=== PATIENT | female | born 1970 | race Caucasian/White ===

== ENCOUNTER 2017-03-21 11:01 | Day surgery (SDC) | payer OTHER ==
[2017-03-21] VITALS (14 sets, daily range): BP systolic 92–120; BP diastolic 63–80; PULSE 72–90; RESP 13–27; Ht 157.5 cm; Wt 91.7 kg
[~2017-03-21] VITALS: Ht 157.5 cm; Wt 91.7 kg
[2017-03-21] MEDS ORDERED: SOD CHLORIDE 0.9% 1,000 ML IV SCH (12:30)
[2017-03-21] MEDS ORDERED: CEFAZOLIN 2 GM/50 ML (PMX) 50 ML IVPB ONE (12:30)
[2017-03-21] MEDS ORDERED: PROPOFOL 20 ML ONE (14:52)
[2017-03-21] MEDS ORDERED: ROCURONIUM 50 MG INJ ONE (14:52)
[2017-03-21] MEDS ORDERED: LIDOCAINE 2% (SDV) 5 ML INJ ONE (14:52)
[2017-03-21] MEDS ORDERED: SUCCINYLCHOLINE CHLORIDE 100 MG/5 ML SYG IV ONE (14:52)
[2017-03-21] MEDS ORDERED: NEOSTIGMINE 3 MG/3 ML SYRINGE ONE ×2 (14:52→15:20)
[2017-03-21] MEDS ORDERED: GLYCOPYRROLATE 1 MG INJ ONE (14:52)
[2017-03-21] MEDS ORDERED: CEFAZOLIN 1 GM INJ ONE (14:55)
[2017-03-21] MEDS ORDERED: ONDANSETRON 4 MG INJ ONE (14:55)
[2017-03-21] MEDS ORDERED: METOCLOPRAMIDE 10 MG INJ ONE (14:55)
[2017-03-21] MEDS ORDERED: BUPIVACAINE 0.25% (MPF) 30 ML INJ ONE (14:55)
[2017-03-21] MEDS ORDERED: hydrALAzine 20 MG INJ IV PRN (15:00)
[2017-03-21] MEDS ORDERED: OXYCODONE/ACETAMINOPHEN (5/325) TAB PO PRN ×2 (15:00)
[2017-03-21] MEDS ORDERED: FENTAnyl 50 MCG/ML VIAL IV PRN ×3 (15:00)
[2017-03-21] MEDS ORDERED: METOCLOPRAMIDE 10 MG INJ IV PRN (15:00)
[2017-03-21] MEDS ORDERED: DIPHENHYDRAMINE 50 MG INJ IV PRN (15:00)
[2017-03-21] MEDS ORDERED: EPHEDrine SULFATE 50 MG/5 ML SYG IV PRN (15:00)
[2017-03-21] MEDS ORDERED: MEPERIDINE 25 MG INJ IV PRN (15:00)
[2017-03-21] MEDS ORDERED: MIDAZOLAM 1 MG/ML 2 ML INJ IV PRN (15:00)
[2017-03-21] MEDS ORDERED: ONDANSETRON 4 MG INJ IV PRN (15:00)
[2017-03-21] MEDS ORDERED: HYDROmorphONE (0.2 MG/ML) 10ML SYG IV PRN ×3 (15:00)
[2017-03-21] MEDS ORDERED: LABETALOL HCL 20MG INJ IV PRN (15:00)
--- NOTE | 2017-03-21 15:49 | OPR ---
Date/Time of Note Date/Time of Note DATE: 03/21/17 TIME: 15:45 Operative Report Procedure Date: Mar 21, 2017 Preoperative Diagnosis symptomatic gallstones Postoperative Diagnosis same Operation/Procedure Performed 1. laparoscopic cholecystectomy 2. therapeutic injection in subcutaneous local anesthesia Surgeon see signature line Rn Transfer none Anesthesia Type: general Estimated Blood Loss: 0 - 10 ml's Transfusion none Specimen gallbladder Grafts/Implants none Complications none Pt Condition Post Procedure: stable Indications This is a 38-year-old female with chronic gallstones. She requests surgical excision of her gallbladder. Risks alternatives benefits and personnel were discussed the patient. Patient expressed understanding and consents to the operation. Procedure Description Patient taken to the OR and prepped and draped in usual sterile fashion. Surgical timeout was performed. IV antibiotics were given. Infraumbilical incision is made with a 15 blade. Dissection cautery was carried down to the fascia. The fascia was grasped with [place]'s and divided with curved Gavin scissors. 0 Vicryl U stitch was placed into the fascia. Blueness on trocar is introduced pneumoperitoneum established. Midepigastric 12 mm optical trocar was placed under direct visualization. Right upper quadrant upper flank 5 mm optical trocar was placed under direct visualization. Upon initial inspection there are some adhesions to the gallbladder which came down bluntly. The gallbladder was grasped and retracted in the lateral and our direction. Cautery was used laterally to allow mobilization. This allowed careful dissection the cystic duct. The cystic duct was thickened. The cystic duct was divided with 3 clips proximal and distally with 35 mm echelon vascular stapler. The cystic artery was divided with 3 clips proximal and clip distal. The gallbladder was taken off the gallbladder bed. There is good hemostasis. the gallbladder was retrieved using Endo Catch bag. O vicryl U-stitch was tied down. Skin was closed using skin andres. Therapeutic injection of subcutaneous local anesthesia was injected into all incision sites. Dry dressings were applied. Maxi REN Mar 21, 2017 15:49
[2017-03-21] MEDS ORDERED: HYDROCODONE/APAP (5/325) TAB PO ONE (16:00)
[2017-03-22] MEDS ORDERED: INFLUENZA VIRUS VACCINE 0.5 ML SYG IM* ONE (15:00)
== END 2017-03-21 17:45 | disposition home or self-care (01) ==
LOC: SDS 11:01
PROVIDERS: ATTEND Surgery
DX: K80.10 Calculus of gallbladder with chronic cholecystitis without obstruction (principal); E66.9 Obesity, unspecified
CPT/HCPCS: 47562; 88304; J0690; J2175; J2405; J2765; J3010; Z7512; Z7610; J2710